=== PATIENT | female | born 1955 | race Caucasian/White ===

== ENCOUNTER 2018-02-28 12:21 | Outpatient (CLI) | payer BC ==
[~2018-02-28 12:21] MED LIST: Gadobenate Dimeglumine 529 MG/1 ML (20ML VIAL) ONE
[2018-02-28 13:20] LABS: Estimated GFR-MDRD - POC Greater than 90
== END 2018-02-28 12:22 | disposition home or self-care (01) ==
LOC: BICMRI 12:21
PROVIDERS: ATTEND Physician Assistant Surgical
DX: M47.26 Other spondylosis with radiculopathy, lumbar region (principal); M47.22 Other spondylosis with radiculopathy, cervical region; M99.83 Other biomechanical lesions of lumbar region; Z98.890 Other specified postprocedural states
CPT/HCPCS: 72050; 72110; 72141; 72158; 82565; A9579

== ENCOUNTER 2018-07-15 09:40 | Outpatient (CLI) | payer BC ==
[2018-07-15 10:14] LABS: Estimated GFR-MDRD - POC Greater than 90
--- NOTE | 2018-07-15 11:31 | MRI ---
NONCONTRAST MRA TOGIAK OF ARIAS AND VERTEBROBASILAR SYSTEM WITH 3D RECONSTRUCTIONS: DATE: 10/15/2017. HISTORY: Headache and dizziness for a couple of years. Family history of aneurysms. FINDINGS: The distal bilateral internal carotid arteries are patent. The bilateral middle cerebral and anterio r cerebral arteries are patent. The left vertebral artery is dominant, but the distal vertebral john rohan bilaterally are patent. The basilar artery and posterior cerebral arteries are patent. No foca l branch occlusion or significant stenosis is seen involving the [place] or vertebrobasilar system. No aneurysm is seen within the limitations of the technique of this exam. IMPRESSION: 1. No focal stenosis or branch occlusion involving the [place] or vertebrobasilar system. 2. No definite aneurysm is seen within the limitations of the technique of this exam. POS: [facility]
--- NOTE | 2018-07-15 12:02 | MRI ---
MRI BRAIN WITH AND WITHOUT CONTRAST: Date: 07/15/18 INDICATION: Family history of aneurysm. Headache and dizziness. FINDINGS: There is normal size of the ventricular system. No acute territorial infarction, mass effect, midline shift, or significant signal abnormality of the brain parenchyma. There is no pathologic intra-axial enhancement. The imaged skull base flow-voids are patent with incidental note of a dominant distal l eft vertebral artery. Incompletely assessed, there is a small focus of enhancing signal at the right suprasellar region, la teral to the infundibulum, incompletely evaluated on the basis of this exam. IMPRESSION: 1. No acute intracranial abnormality. 2. Small signal alteration with suggested enhancement at the right lateral aspect of the suprasellar region, which is located laterally to the infundibulum and underlies the optic chiasm. Recommend a d edicated MRI brain with and without contrast, using sellar mass protocol, for further interrogation. CODE T. POS: [facility]
[2018-07-15] MEDS ORDERED: Gadobenate Dimeglumine 529 MG/1 ML (20ML VIAL) ONE (13:31)
== END 2018-07-15 09:41 | disposition home or self-care (01) ==
LOC: BICMRI 09:40
PROVIDERS: ATTEND Surgery
DX: Z82.49 Family history of ischemic heart disease and other diseases of the circulatory system (principal)
CPT/HCPCS: 70544; 70553; 82565; A9579

== ENCOUNTER 2018-12-02 10:33 | Outpatient (CLI) | payer BC ==
[2018-12-02 12:45] LABS: Hemoglobin 13.4 g/dL (12.0-16.0); Mean Corpuscular Volume 90.7 fL (78.0-98.0); Mean Platelet Volume 6.9 fL (7.4-10.4); Platelet Count 307 thou/uL (130-400); RBC Distribution Width 12.2 % (11.5-14.5); Red Blood Cell (RBC) Count 4.63 mill/uL (4.20-5.40); White Blood Cell (WBC) Count 8.6 thou/uL (4.8-10.8)
[2018-12-02 12:50] LABS: PTT 25.2 SEC (22.9-36.1)
[2018-12-02 13:07] LABS: Anion Gap 15 mmol/L (10-20); BUN (Urea Nitrogen) 12 mg/dL (9.8-20.1); Calc. Creatinine Clearance 0 mL/min (70-130); Carbon Dioxide 23 mmol/L (23-31); Chloride 106 mmol/L (98-107); Estimated GFR-MDRD 89; Glucose 106 mg/dL (80-115); Potassium 3.8 mmol/L (3.5-5.1); Sodium 140 mmol/L (136-145)
--- NOTE | 2018-12-02 17:09 | EKG ---
Test Reason : Blood Pressure : / mmHG Vent. Rate : 085 BPM Atrial Rate : 085 BPM P-R Int : 178 ms QRS Dur : 098 ms QT Int : 406 ms P-R-T Axes : 051 -25 069 degrees QTc Int : 483 ms Normal sinus rhythm with sinus arrhythmia Cannot rule out Anterior infarct , age undetermined RSR' or QR pattern in V1 suggests right ventricular conduction delay Abnormal ECG No previous ECGs available Confirmed by KATHRYN TEJADA ([id number]) on 12/02/2018 5:09:29 PM Referred By: ALEX Confirmed By:KATHRYN TEJADA
== END 2018-12-02 10:34 | disposition home or self-care (01) ==
LOC: LABBT 10:33
PROVIDERS: ATTEND Surgery
DX: Z01.812 Encounter for preprocedural laboratory examination (principal); M54.16 Radiculopathy, lumbar region; M48.061 Spinal stenosis, lumbar region without neurogenic claudication
CPT/HCPCS: 80048; 85027; 85610; 85730; 93005; 93010

== ENCOUNTER 2018-12-09 07:31 | Day surgery (SDC) | payer BC ==
[2018-12-02 11:06] VITALS: BMI 42.9
[2018-12-09] MEDS ORDERED: Sodium Chloride 0.9% 10 ML ONE (10:33)
[2018-12-09] MEDS ORDERED: Thrombin 5000 UNITS/5 ML VIAL ONE (10:33)
[2018-12-09] MEDS ORDERED: Bacitracin Zinc Ointment 30 gm TUBE ONE (10:33)
[2018-12-09] MEDS ORDERED: Midazolam HCl 2 mg/2 ml Vial ONE (10:45)
[2018-12-09] MEDS ORDERED: Fentanyl 250 MCG/5 ML VIAL ONE (10:45)
[2018-12-09] MEDS ORDERED: Dexamethasone 20 MG/5 ML VIAL ONE (13:47)
[2018-12-09] MEDS ORDERED: ePHEDrine 50 MG/ML VIAL ONE (13:47)
[2018-12-09] MEDS ORDERED: Rocuronium Bromide 10 MG/ML (10ML VIAL) ONE (13:47)
[2018-12-09] MEDS ORDERED: Lidocaine 1% PF 5 ML VIAL ONE (13:47)
[2018-12-09] MEDS ORDERED: PHENYLEPHRINE-NS 100 MCG/ML 10 ML SYRINGE ONE (13:47)
[2018-12-09] MEDS ORDERED: PROPOFOL 200 MG/20 ML VIAL ONE (13:47)
[2018-12-09] MEDS ORDERED: traMADol HCl 50 MG TAB PO PRN (14:46)
[2018-12-09] MEDS ORDERED: Promethazine HCl 25 MG/ML VIAL IM PRN ×2 (14:46→14:53)
[2018-12-09] MEDS ORDERED: Morphine 4 MG/ML VIAL SLOW IVP PRN (14:46)
[2018-12-09] MEDS ORDERED: Bisacodyl 10 MG SUPP PR PRN (14:46)
[2018-12-09] MEDS ORDERED: Acetaminophen 325 MG TAB PO PRN (14:46)
[2018-12-09] MEDS ORDERED: Mag-Al 1200 mg/1200 mg/30 ML UDCUP PO PRN (14:46)
[2018-12-09] MEDS ORDERED: Milk Of Magnesia 30 ML UDCUP PO PRN (14:46)
[2018-12-09] MEDS ORDERED: tiZANidine HCl 4 MG TAB PO PRN (14:46)
[2018-12-09] MEDS ORDERED: Fleet Enema 133 ML BOT PR PRN (14:46)
[2018-12-09] MEDS ORDERED: HYDROmorphone 2 MG/ML VIAL SLOW IVP PRN (14:53)
[2018-12-09] MEDS ORDERED: Ondansetron HCl/PF 4 MG/2 ML Vial IVP PRN (14:53)
[2018-12-09] MEDS ORDERED: Promethazine HCl 25 MG/ML VIAL SLOW IVP PRN (14:53)
[2018-12-09] MEDS ORDERED: Fentanyl 100 MCG/2 ML VIAL ONE ×2 (15:05→16:01)
--- NOTE | 2018-12-09 15:41 | OP ---
DATE OF PROCEDURE: 12/09/2018 OPERATING ROOM: OR 12. WOUND CLASSIFICATION: Type 1 wound. [employer] PROFILER: Joshua Evans PA-C. PREPROCEDURE DIAGNOSIS: Left L3-L4 disk extrusion with far lateral component and paracentral component with low back and left leg pain. POSTPROCEDURE DIAGNOSIS: Left L3-L4 disk extrusion with far lateral component and paracentral component with low back and left leg pain. PROCEDURES PERFORMED: 1. Left L3-L4 hemilaminotomy, foraminotomy diskectomy. 2. Trans-facet approach for decompression of the far-lateral component of left L3 nerve root, far lateral diskectomy. 3. Use of operative microscope for microdissection. DESCRIPTION OF PROCEDURE: After informed consent was obtained from the patient, the patient was brought to the OR. Proper patient, pause, and identification were carried out. The wound was then opened with combination of sharp, monopolar, and blunt dissection following positioning prone, and all appropriate points were padded. We identified the L3-L4 dorsal spines. We then exposed the left L3-L4 for hemilaminotomy and localization film confirmed our area of interest. We performed a left L3-L4 hemilaminotomy, foraminotomy, and entered the disk space. We then turned to a trans-facet approach and decompressed the lateral and far-lateral components of the disk space and removed disk fragments so that the exiting left L3 nerve root was copiously decompressed. We had excellent decompression at the conclusion of the surgery and the wound was copiously irrigated throughout, closed in anatomic layers following sprinkling of vancomycin powder and maximizing hemostasis. Job ID: [id number]
[2018-12-09] MEDS ORDERED: Acetaminophen 500 MG TAB PO PRN (17:06)
[2018-12-09] MEDS ORDERED: Labetalol HCl 100 MG/20 ML VIAL SLOW IVP SCH (17:15)
[2018-12-09] MEDS: CEFAZOLIN 2 GM in Premix Bag 1 BAG IVPB SCH (17:25)
[2018-12-09] MEDS: Sodium Chloride 0.9% 1,000 ML IV SCH (17:59)
[2018-12-09] MEDS: HYDROcodone/Acetaminophen 7.5/325 mg Tablet PO PRN ×2 (18:34→22:40)
[2018-12-10] MEDS: CEFAZOLIN 2 GM in Premix Bag 1 BAG IVPB SCH (00:52)
[2018-12-10] MEDS: Sodium Chloride 0.9% 1,000 ML IV SCH (04:55)
[2018-12-10] MEDS: HYDROcodone/Acetaminophen 7.5/325 mg Tablet PO PRN ×2 (04:56→09:58)
[2018-12-10 07:55] VITALS: TEMP 98.3
[2018-12-10] MEDS: Calcium Carbonate + Vit D 1 TAB PO SCH ×2 (08:08→08:43)
[2018-12-10] MEDS ORDERED: Estrogens, Conjugated 0.3 MG TAB PO SCH (09:00)
[2018-12-10] MEDS ORDERED: Meloxicam 15 MG TAB PO SCH (09:00)
[2018-12-10] MEDS ORDERED: Lisinopril 10 MG TAB PO SCH (09:00)
[2018-12-10] MEDS ORDERED: Multivit, Chewable SF 1 TAB PO SCH (09:00)
[2018-12-10 11:37] VITALS: BP 125/76
--- NOTE | 2018-12-10 12:03 | PRG ---
DATE OF SERVICE: 12/10/2018 Ms. Lacy is postoperative day #1 from left-sided L3-L4 hemilaminotomy, foraminotomy, and diskectomy with transfacet far-lateral approach for left L3 decompression. She is doing well with resolution in her left leg pain and moving her extremities without deficit. We went over both intra and postoperative issues, and she has met criteria for dismissal. She will be discharged. Job ID: [id number]
== END 2018-12-10 12:04 | disposition home or self-care (01) ==
LOC: SDC 07:31 → SJJU 16:48 → SDC 12-10 12:04
PROVIDERS: ATTEND Surgery
PROC: 00NY0ZZ Release Lumbar Spinal Cord, Open Approach (ICD-10-PCS; principal; 2018-12-09)
DX: M51.26 Other intervertebral disc displacement, lumbar region (principal); Z88.2 Allergy status to sulfonamides; Z88.8 Allergy status to other drugs, medicaments and biological substances; Z79.1 Long term (current) use of non-steroidal anti-inflammatories (NSAID); Z79.899 Other long term (current) drug therapy
CPT/HCPCS: 76000; J2250; J3010; J3370; J3490

== ENCOUNTER 2019-05-24 08:31 | Outpatient (CLI) | payer MEDICARE ==
[2019-05-24 09:28] LABS: Estimated GFR-MDRD - POC Greater than 90
--- NOTE | 2019-05-24 10:48 | MRI ---
MRI BRAIN WITH AND WITHOUT CONTRAST FOLLOWING PITUITARY AND SELLA TURCICA PROTOCOL: INDICATIONS: Follow up suprasellar lesion seen on prior MRI brain. COMPARISON: MRI brain from 07/15/2018. MRA brain from 07/15/2018. CT brain from 04/06/2017. Prior MRI described a small enhancing nodule in the right suprasellar region. It was no adequately e valuated on routine brain study at that time. A sella protocol was recommended. FINDINGS: On today's exam, there continues to be a small, enhancing nodule in the right suprasellar region, whi ch lies on top of the right cavernous internal carotid artery. This measures approximately 5 mm. It shows a density enhancing component and a small nonenhancing component. It is stable in appearance when compared to the prior MRI. The ventricles are normal in size and position. There is no mass, edema, white matter abnormality, o r restricted diffusion. The intracranial internal carotid arteries and cerebral arteries show expect ed flow voids. IMPRESSION: Small, 5 mm enhancing nodule, right suprasellar region, abutting the wall of the right cavernous inte rnal carotid artery. It is unchanged from prior examination. Considerations include small meningiom a and small carotid aneurysm, partially thrombosed. This was not seen on the MRA examination of 02/2018, which may argue against aneurysm. If aneurysm is suspected, catheter angiography or CT angio graphy may give further information, if indicated. POS: [facility]
== END 2019-05-24 08:32 | disposition home or self-care (01) ==
LOC: TBSIIMAG 08:31
PROVIDERS: ATTEND Surgery
DX: E23.6 Other disorders of pituitary gland (principal)
CPT/HCPCS: 70553; 82565

== ENCOUNTER 2020-08-28 13:27 | Outpatient (CLI) | payer MEDICARE ==
[~2020-08-28 13:27] MED LIST changes: -Gadobenate Dimeglumine 529 MG/1 ML (20ML VIAL) ONE; +Magnevist 469MG/ML 20 ML VIAL ONE
[2020-08-28 14:27] LABS: Estimated GFR-MDRD - POC Greater than 90
--- NOTE | 2020-08-28 15:17 | MRI ---
Exam: Brain MRI with and without contrast HISTORY: Meningioma. COMPARISON: 07/15/2018, 05/24/2019 FINDINGS: Hemorrhage: No hemorrhage Calvarium: Appropriate T1 marrow signal intensity Midline brain parenchyma: Unremarkable Cerebrum:No parenchymal mass, mass effect or midline shift. Brain volume, age-appropriate. Cortical g ray-white matter differentiation preserved. No significant T2 or FLAIR white matter hyperintensities. Ventricles: No evidence of hydrocephalus. Sinuses and mastoid air cells: Adequate aeration of the paranasal sinuses and mastoid air cells. Left and right petrous apices are aerated. Partial opacification of the right petrous apex. Diffusion: Central arterial flow is maintained. Absent restricted diffusion. Postcontrast images: No pathologic enhancement of the brain parenchyma. Sella MRI: Appropriate signal intensity of the pituitary gland. Normal-appearing pituitary stalk. No mass effect upon the optic chiasm and prechiasmatic optic nerves Cavernous carotid flow voids are maintained Redemonstration of a T1 isointense, T2 mixed signal intensity lesion just superior to the right [place] carotid artery. Postcontrast images demonstrate peripheral enhancement. The central portion of this lesion does not enhance. There has been no appreciable change in size. Lesion continue measures 0.5 cm. No associated mass effect or midline shift. Lesion is extra-axial location. IMPRESSION: Extra-axial lesion just superior to the right cavernous carotid artery. Lesion has peripheral enhance ment and is extra-axial in location. Imaging features are typical for a meningioma. However, given long-term stability a benign process is favored. Transcribed Date/Time: 08/28/2020 3:40 PM
== END 2020-08-28 13:28 | disposition home or self-care (01) ==
LOC: TBSIIMAG 13:27
PROVIDERS: ATTEND Surgery
DX: D32.9 Benign neoplasm of meninges, unspecified (principal); I77.89 Other specified disorders of arteries and arterioles
CPT/HCPCS: 70553; 82565; A9579

== ENCOUNTER 2021-07-24 13:27 | Outpatient (CLI) | payer MEDICARE | END 2021-07-24 13:28 | disposition home or self-care (01) | LOC: TBSIIMAG 13:27 | PROVIDERS: ATTEND Surgery | DX: M48.02 Spinal stenosis, cervical region (principal); M47.812 Spondylosis without myelopathy or radiculopathy, cervical region | CPT/HCPCS: 72050; 72141 ==